=== PATIENT | female | born 1960 ===

== ENCOUNTER 2023-03-02 10:05 | Outpatient (OUT) | payer MEDICARE, SELFPAY ==
--- NOTE | 2023-03-02 10:26 | XR_ITS ---
The [address] [address] Patient Name: GUADALUPE BHAKTA MRN: [id number] date: 1960 Sex: F Assigned Patient Location: [facility] Current Patient Location: [facility] Accession/Order Number: [id number] Exam Date: 03/02/2023 10:26 Report Date: 03/02/2023 17:26 At the request of: DEANNA CELIS Procedure: XR foot RAYMUNDO min 3V EXAMINATION: XR foot RAYMUNDO min 3V HISTORY: BILATERAL FOOT PAIN ; chronic bilateral midfoot pain COMPARISON: No relevant comparison available. FINDINGS: RIGHT FINDINGS: BONES: Minimal flattening of the plantar arch. Calcaneal plantar spur. No fracture, dislocation, or bone lesion. SOFT TISSUES: No visible soft tissue swelling. OTHER: Negative. LEFT FINDINGS: BONES: Mild flattening of the plantar arch. Calcaneal plantar spur. No fracture, dislocation, or bone lesion. SOFT TISSUES: No visible soft tissue swelling. OTHER: Negative. XR/XR foot RAYMUNDO min 3V IMPRESSION: RIGHT CONCLUSION: 1. No acute abnormality or significant degenerative changes. LEFT CONCLUSION: 1. Mild pes planus. Electronically authenticated by: FRANCA COPE Date: 03/02/2023 17:26
== END 2023-03-02 10:06 | disposition home or self-care (01) ==
LOC: RAD 10:07
PROVIDERS: Visit Provider Podiatrist Foot & Ankle Surgery
DX: G62.9 Polyneuropathy, unspecified (principal); M21.42 Flat foot [pes planus] (acquired), left foot
CPT/HCPCS: 73630